=== PATIENT | female | born 1990 | race Caucasian/White ===

== ENCOUNTER 2017-10-20 23:40 | Emergency (ER) | payer MEDICAID ==
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
[2017-10-21] MEDS ORDERED: LORazepam 2 MG/ML SDV IVPUSH ONE (00:07)
[2017-10-21] MEDS ORDERED: Sodium Chloride 0.9% 10 ML Syringe FLUSH PRN (00:07)
[2017-10-21 00:38] LABS: CHLORIDE,CL 107 mmol/L (98-107); SODIUM,NA 143 mmol/L (136-145)
[2017-10-21 00:40] LABS: ACETAMINOPHEN 0 ug/ml (10-30)
== END 2017-10-21 02:07 ==
LOC: VM.ED 23:40
DX: F41.1 Generalized anxiety disorder (principal); F32.9 Major depressive disorder, single episode, unspecified; R45.851 Suicidal ideations
CPT/HCPCS: 36415; 80048; 80305; 81001; 85025; 96372; 96374; 99285; G0480; J2060; J3230